=== PATIENT | female | born 1990 | race Two or more races ===

== ENCOUNTER 2018-04-21 17:29 | Emergency (ER) | payer BC | END 2018-04-21 21:15 | disposition home or self-care (01) | LOC: FTE 17:29 | DX: S90.01XA Contusion of right ankle, initial encounter (principal); X58.XXXA Exposure to other specified factors, initial encounter; Y92.9 Unspecified place or not applicable | CPT/HCPCS: 73610; 73610-RT; 99283-25 ==

== ENCOUNTER 2018-05-01 19:30 | Emergency (ER) | payer BC | END 2018-05-01 21:40 | disposition home or self-care (01) | LOC: FTE 19:30 | DX: M79.671 Pain in right foot (principal) | CPT/HCPCS: 93971; 99284-25 ==

== ENCOUNTER 2019-01-31 14:32 | Emergency (ER) | payer BC ==
[2019-01-31] MEDS: ACETAMINOPHEN 500 MG TAB PO ×2 (17:09→17:10)
== END 2019-01-31 19:06 | disposition home or self-care (01) ==
LOC: FTE 14:32
DX: O9A.212 Injury, poisoning and certain other consequences of external causes complicating pregnancy, second trimester (principal); S52.612A Displaced fracture of left ulna styloid process, initial encounter for closed fracture; S52.572A Other intraarticular fracture of lower end of left radius, initial encounter for closed fracture; W01.0XXA Fall on same level from slipping, tripping and stumbling without subsequent striking against object, initial encounter; Y92.9 Unspecified place or not applicable; Z3A.20 20 weeks gestation of pregnancy
CPT/HCPCS: 29125; 73090; 73110-LT; 73130-LT; 76805; 99284-25